=== PATIENT | male | born 1940 | race Caucasian/White ===

== ENCOUNTER 2020-08-27 12:00 | Emergency (ER) | payer OTHER ==
[2020-08-27 12:40] LABS: #Basophils 0.1 thou/uL (0.0-0.2); #Eosinphils 0.1 thou/uL (0.0-0.7); #Lymphocytes 1.3 thou/uL (1.20-3.40); #Monocytes 0.5 thou/uL (0.11-0.59); #Neutrophils 9.4 thou/uL (1.40-6.50); %Basophils 0.5 % (0.0-1.0); %Eosinophils 0.5 % (0.0-10.0); %Lymphocytes 11.6 % (21.0-51.0); %Monocytes 4.5 % (0.0-10.0); %Neutrophils 82.9 % (42.0-75.0); Hemoglobin 13.2 g/dL (14.0-18.0); Mean Corpuscular HGB CONC 32.9 g/dL (32.0-36.0); Mean Corpuscular Hemoglobin 29.6 pg (27.0-31.0); Mean Corpuscular Volume 90.2 fL (78.0-98.0); Mean Platelet Volume 7.1 fL (7.4-10.4); Platelet Count 177 thou/uL (130-400); RBC Distribution Width 13.6 % (11.5-14.5); Red Blood Cell (RBC) Count 4.47 mill/uL (4.70-6.10); White Blood Cell (WBC) Count 11.4 thou/uL (4.8-10.8)
[2020-08-27 13:01] LABS: ALT (SGPT) 20 U/L (8-55); AST (SGOT) 19 U/L (5-34); Albumin 4.4 g/dL (3.4-4.8); Alkaline Phosphatase 128 U/L (40-110); Anion Gap 12 mmol/L (10-20); BUN (Urea Nitrogen) 15 mg/dL (8.4-25.7); Bilirubin, Total 0.7 mg/dL (0.2-1.2); Calc. Creatinine Clearance 0 mL/min (70-130); Calcium 10.5 mg/dL (7.8-10.44); Carbon Dioxide 26 mmol/L (23-31); Chloride 107 mmol/L (98-107); Globulin 2.6 g/dL (2.4-3.5); Glucose 99 mg/dL (83-110); Lipase 15 U/L (8-78); Potassium 3.9 mmol/L (3.5-5.1); Sodium 141 mmol/L (136-145)
--- NOTE | 2020-08-27 13:57 | CT ---
CT ABDOMEN NONCONTRAST CT PELVIS NONCONTRAST: (Urolithiasis protocol) DATE: 08/27/2020 HISTORY: 80-year-old male with acute onset right flank pain with nausea and vomiting COMPARISON: None TECHNIQUE: IV injection of iodinated contrast media: None Oral contrast media: None FINDINGS: Other than for urolithiasis, the lack of IV and oral contrast limits the evaluation. There is a 5 x 3 x 2 mm calculus lodged in the right proximal-mid ureter at the L4-5 level. Superior to that, there is mild right hydroureteronephrosis. There are several calculi in right renal mid, upper, and lower pole calyces, the largest of which is in an upper pole calyx measuring 6 x 4 x 4 mm. Just medial to that, there is a 2.5 x 2.5 x 2.5 cm renal parenchymal cyst. On the contralateral left side, there are a few small calculi at upper and lower pole calyces. Within the limitations of a noncontrast scan, no major pathology is identified involving abdominal ao rta, liver, pancreas, adrenals, spleen, appendix, or urinary bladder. Mildly enlarged prostate. Numerous diverticula throughout the transverse, descending, and redundant sigmoid,:, Without divertic ulitis. No small bowel dilation, ascites, or pneumoperitoneum. Tiny bilateral pleural effusions, right greater than left. Lung bases are grossly clear. Lumbar and lower thoracic vertebral body heights are maintained. IMPRESSION: 1) right-sided obstructive uropathy: 5 mm calculus in the right mid ureter causing mild right hydrone phrosis. 2) bilateral nephrolithiasis, right worse than left. 3) tiny bilateral pleural effusions, right greater than left..
[2020-08-27 14:32] LABS: Bacteria/HPF None Seen HPF (None Seen); Bilirubin Negative (Negative); Blood, Urine 3+ (Negative); Clarity Turbid (Clear); Glucose, Urine (Dipstick) Normal (Negative); Ketone, Urine Negative (Negative); Leukocyte Negative Leu/uL (Negative); Nitrite Negative (Negative); Protein, Urine (Dipstick) 10 mg/dL (Neg-Trace); RBC/HPF Greater than 50 HPF (0-3); Specific Gravity, Urine 1.017 (1.002-1.036); Squamous Epithelial None Seen HPF (0-3); Urobilinogen Normal mg/dL (Less than 2); pH, Urine 6.5 (5.0-9.0)
== END 2020-08-27 15:44 | disposition home or self-care (01) ==
LOC: ERS 12:00
DX: N13.2 Hydronephrosis with renal and ureteral calculous obstruction (principal); Z79.899 Other long term (current) drug therapy; I10 Essential (primary) hypertension; J44.9 Chronic obstructive pulmonary disease, unspecified; E78.5 Hyperlipidemia, unspecified
CPT/HCPCS: 36415; 74176; 80053; 81003; 81015; 83690; 85025